=== PATIENT | male | born 1955 | race American Indian/Alaskan Native ===

== ENCOUNTER 2019-11-23 09:12 | Outpatient (CLI) | payer MEDICARE, OTHER ==
--- NOTE | 2019-11-23 10:25 | XRay Report ---
HISTORY:BILATERAL SHOULDER PAIN, UNSPECIFIED CHRONICITY COMPARISON: None. TECHNIQUE: AP lateral and obliques views were obtained FINDINGS: Bones: No fracture or dislocation. Joint spaces: Maintained. Calcific tendinitis overlying the lateral aspect of the humerus Soft tissues: No significant abnormality. Additional findings: Previous surgical changes overlying the humeral head IMPRESSION: 1. No acute significant abnormality. Signer Name: Abel Stone MD Signed: 11/23/2019 10:21 AM Workstation Name: [id number]
== END 2019-11-23 09:13 | disposition home or self-care (01) ==
LOC: SPVIMAG 09:12
PROVIDERS: ATTEND Internal Medicine
DX: M65.222 Calcific tendinitis, left upper arm (principal); M65.221 Calcific tendinitis, right upper arm; Z98.890 Other specified postprocedural states